=== PATIENT | female | born 1995 | race Caucasian/White ===

== ENCOUNTER 2020-07-14 11:29 | Emergency (ER) | payer MEDICAID ==
[~2020-07-14] VITALS: Ht 170.2 cm; Wt 58.1 kg
[2020-07-14 14:57] VITALS: BP 126/71
== END 2020-07-14 14:57 | disposition home or self-care (01) ==
LOC: ED 11:29
DX: S80.01XA Contusion of right knee, initial encounter (principal); Z86.2 Personal history of diseases of the blood and blood-forming organs and certain disorders involving the immune mechanism; V49.49XA Driver injured in collision with other motor vehicles in traffic accident, initial encounter; Y93.I9 Activity, other involving external motion; Y92.488 Other paved roadways as the place of occurrence of the external cause; Y99.8 Other external cause status
CPT/HCPCS: Q0092